=== PATIENT | male | born 1965 | race Caucasian/White ===

== ENCOUNTER → 2024-09-28 | Outpatient (CLI) | payer BC ==
[2024-09-28 15:34] VITALS: BP 152/84; PULSE 56; RESP 16; TEMP 97.6
--- NOTE | 2024-09-28 16:54 | P.SLEEP ---
History of Present Illness DATE: 09/28/2024 CONSULTATION/NEW PATIENT EVALUATION HISTORY OF PRESENT ILLNESS/SLEEP-WAKE EVALUATION: 59-year-old gentleman had b een evaluated in the sleep center for obstructive sleep apnea hypopnea syndrome and restless leg symptoms. Patient has history of obstructive sleep apnea for 14 years, for all that years patient is on treatment with CPAP. Presently he is using his second CPAP unit every night. I checked CPAP unit, AutoPap with range of pressure 10-12.4. Usage is 100%, average 7.5 hours per night. Leak is 7 L /min which is in normal range. Apnea hypopnea index is 2.7, which is normal. SLEEP SCHEDULE: Usually sleep schedule from 11:30 PM to 8 AM on weekdays and from midnight until 9 AM on weekend. FALLING ASLEEP: Sometimes patient has difficulties to fall asleep. Patient complains on restless leg symptoms, which interact with process of falling asleep. DURING SLEEP: No snoring with CPAP. Patient may wake up from sleep only once. No history of hypnogogical hallucinations, sleep paralysis, or cataplexy. DURING THE DAY/WAKE STATE: No symptoms of significant excessive daytime sleepiness. [place] sleepiness scale is 4. Usually patient does not take naps, rarely on Thursday. PAST MEDICAL HISTORY: Obsessive-compulsive disorder. PAST SURGICAL HISTORY: Vasectomy, surgical treatment for basal cell carcinoma of the skin. MEDICATIONS: Please see below. SOCIAL HISTORY: Please see below. FAMILY HISTORY: Please see below. REVIEW OF SYSTEMS: No snoring on CPAP, restless leg symptoms while falling asleep. No fevers. No double vision. No recent chest pain. No shortness of breath. No abdominal pain. No bleeding episodes. No blood in urine. No seizure episodes. PHYSICAL EXAMINATION: GENERAL: A pleasant patient without any distress. VITAL SIGNS: See below, weight 230.6 pounds, BMI 33.0. HEENT: PERRLA, EOMI. Evaluation of oropharynx showed tongue protrudes midline, low position of soft palate Mallampati 23, short distance between soft palate and posterior pharyngeal wall. NECK: Supple. No JVD. Thyroid is not palpable. 16 inches in circumference. LUNGS: Clear to percussion and to auscultation. Good air exchange. No wheezing or rhonchi. HEART: S1, S2 regular. No murmurs, gallops or rubs. ABDOMEN: Soft and nontender. Bowel sounds are present. No organomegaly appreciated. EXTREMITIES: No clubbing or cyanosis. [employer]: Awake, alert, and oriented x3. Cranial nerves 2 to 7 intact. There is no fasciculation or atrophy noted. No focal deficits observed. ASSESSMENT: 1. Obstructive sleep apnea hypopnea syndrome for 14 years. Patient continued to use CPAP equipment every night for the whole night. Normal respiration during sleep according to the reading from CPAP unit. 2. Restless leg symptoms which interact with process of falling asleep. 3. Status post vasectomy. 4. History of obsessive-compulsive disorder. 5 status post surgical treatment for basal cell carcinoma of the skin. 6 . Very mild obesity, BMI 33.0. PLAN: 1. Patient will continue to use CPAP equipment every night for the whole night. 2. We will get results of previous sleep studies. 3. Preferable position during sleep on the side. 4. No driving if patient feels any sleepiness. Patient is aware of civil and criminal liability for unsafe driving. 5. Sleep hygiene with regular sleep time for at least 7.5-8 hours. 6. Watching weight. 7. Will provide patient with all necessary prescription for CPAP supplies. 8. Please check iron profile including ferritin level, low level of iron may increase risk for restless leg syndrome. 9. Patient was started on treatment with Mirapex 0.125 mg 1 to 2 tablets at bedtime to prevent restless leg symptoms. 10. Follow-up visit in 6 months or earlier if patient has any problems. Thank you very much for referring this patient for consultation. Sincerely, Avinash Erwin MD, PhD, FAASM. Diplomat of [place] [employer], Sleep Medicine Board by [place] [employer] [place] [employer] H[facility] Coordinator of [facility] [place] cc: Daria Rossi [employer] ASSOCIATEGiselle Past Medical History Past Medical History: Cancer, Sleep Apnea/CPAP/BIPAP Additional Past Medical History / Comment(s): Snoring, skin cancer back of neck - think basal cell, OCD, RESTLESS LEG, History of Any Multi-Drug Resistant Organisms: None Reported Additional Past Surgical History / Comment(s): 1 WISDOM TOOTH IMPACTED, VASECTOMY, SKIN CANCER - BACK OF NECK Additional Psychological History / Comment(s): OCD Smoking Status: Never smoker, Second hand smoke exposure Past Alcohol Use History: Occasional Past Drug Use History: None Reported - Past Family History Mother Family Medical History: Hypertension Additional Family Medical History / Comment(s): Ulcers, (grandmother - diabetees) emphysema/copd, surgery for an ulcer Father Additional Family Medical History / Comment(s): Ulcers Medications and Allergies Home Medications Medication Instructions Recorded Confirmed Type Sertraline [Zoloft] 100 mg PO DAILY 09/28/24 09/28/24 History clonazePAM [Clonazepam] 0.5 mg PO DAILY 09/28/24 09/28/24 History Physical Exam Vitals: Vital Signs Temp Pulse Resp BP Pulse Ox 09/28/24 15:31 97.6 F 56 L 16 152/84 100 Intake and Output 09/28/24 09/28/24 09/28/24 06:59 14:59 22:59 Other: Weight 104.496 kg Sleep Note - Sleep Data ESS Total: 4 - Sleep Note Sleep Note: Temperature: 97.6 F Pulse Rate: 56 Respiratory Rate: 16 Blood Pressure: 152/84 SpO2: 100 Height: 5 ft 10 in Weight: 104.496 kg BMI: Neck Circumference: 16
== END ==
LOC: 3 N SLEEP 15:18
PROVIDERS: ATTEND Internal Medicine
DX: G47.33 Obstructive sleep apnea (adult) (pediatric) (principal); G25.81 Restless legs syndrome; E66.9 Obesity, unspecified; Z68.33 Body mass index [BMI] 33.0-33.9, adult; Z98.52 Vasectomy status; Z87.898 Personal history of other specified conditions; Z85.828 Personal history of other malignant neoplasm of skin
CPT/HCPCS: 99211